=== PATIENT | female | born 1960 | race Caucasian/White ===

== ENCOUNTER 2019-04-07 10:56 | Inpatient (IN) ==
[2019-04-07] MEDS ORDERED: ASPIRIN PO ONE (11:06)
[2019-04-07] MEDS ORDERED: ASPIRIN PR ONE (11:06)
[2019-04-07] MEDS ORDERED: CARDIZEM ONE (11:13)
[2019-04-07] MEDS ORDERED: NS 1,000 ML ONE (11:14)
[2019-04-07] MEDS ORDERED: CARDIZEM IV ONE (11:18)
[2019-04-07] MEDS ORDERED: NS 1,000 ML IV ONE (11:24)
[2019-04-07 11:26] LABS: BASO# 0.04 X1000 (0.0-0.2); BASO% 0.5 % (0.0-0.8); EOS# 0.05 X1000 (0.0-0.7); EOS% 0.6 % (0.0-10.0); HEMATOCRIT 47.6 % (37.0-47.0); HEMOGLOBIN 15.4 g/dL (12.0-16.0); IMM GRAN# 0.06 X1000 (0.0-0.04); IMM GRAN% 0.7 % (0.0-0.5); LYMPH# 2.26 X1000 (1.2-3.4); LYMPH% 27.5 % (20.5-51.1); MCH 30.9 PG (27-31); MCHC 32.4 g/dL (33-37); MCV 95.6 FL (81-99); MONO# 0.68 X1000 (0.11-0.59); MONO% 8.3 % (1.7-9.3); MPV 9.5 FL (7.4-10.4); NEUT# 5.13 X1000 (1.4-6.5); NEUT% 62.4 % (42.2-75.2); PLT 429 X1000 (130-400); RBC 4.98 XMIL (4.2-5.4); RDW 14.5 % (11.5-14.5); WBC 8.22 X1000 (4.8-10.8)
[2019-04-07 11:40] LABS: INR 1.03
[2019-04-07 11:41] LABS: AGAP 16; ALKALINE PHOSPHATASE 118 U/L (32-104); BUN 11 mg/dL (8-22); CHLORIDE 95 mmol/L (98-107); CK PROFILE 54 U/L (24-173); COSMO 269; CREATININE 0.9 mg/dL (0.5-0.9); ESTIMATED GFR > 60; GLUCOSE 115 mg/dL (70-104); GOT 38 U/L (10-30); GPT 12 U/L (10-36); POTASSIUM 4.8 mmol/L (3.5-5.1); PTT 31.6 Seconds (22.3-41.8); SODIUM 134 mmol/L (136-145); TCO2 24 mmol/L (25-35); TOTAL PROTEIN 7.4 g/dL (6.3-8.3)
[2019-04-07] MEDS ORDERED: CARDIZEM 100 MG/NS 100 MG/100 ML IVPB IV SCH (11:45)
[2019-04-07] MEDS: CARDIZEM 125 MG/D5W 125 MG/125 ML IVPB IV SCH ×2 (11:58→18:52)
[2019-04-07 12:16] LABS: URINE SOURCE CLEAN CATCH
[2019-04-07 12:20] LABS: BILIRUBIN URINE NEGATIVE (NEGATIVE); BLOOD URINE NEGATIVE (NEGATIVE); COLOR YELLOW; GLUCOSE URINE NEGATIVE (NEGATIVE); KETONE URINE NEGATIVE (NEGATIVE); LEUKOCYTES URINE NEGATIVE (NEGATIVE); NITRITE URINE NEGATIVE (NEGATIVE); PROTEIN URINE NEGATIVE (NEGATIVE); SP GRAVITY URINE 1.008; TURBIDITY URINE CLEAR (CLEAR); UROBILINOGEN URINE NORMAL (NORMAL)
[2019-04-07 12:23] LABS: UR EPITHELIAL CELLS >10 /HPF (<10); URINE BACTERIA NEGATIVE /HPF; URINE CASTS NONE SEEN; URINE CRYSTALS NONE SEEN; URINE RBC <10 /HPF (<10); URINE SMALL ROUND CELLS NONE SEEN; URINE WBC <10 /HPF (<10); URINE YEAST NONE SEEN
--- NOTE | 2019-04-07 12:42 | Diag Imaging Result Doc PS360 ---
EXAM: CHEST-2 VIEWS HISTORY: WEAKNESS RECENT DX OF PNEUMONIA TECHNIQUE: Two views COMPARISON: 04/04/2019 FINDINGS: There are small pleural effusions, right greater than left. The heart remains mildly enlarged. There is vascular distention. Atelectasis is present in the lower lungs and there may be underlying infiltrates as well. IMPRESSION: Mild interval worsening Electronically signed by Dinh Ardon 04/07/2019 12:40 PM
[2019-04-07] MEDS ORDERED: LANOXIN IV ONE ×2 (12:44→16:01)
--- NOTE | 2019-04-07 13:33 | Diag Imaging Result Doc PS360 ---
EXAM: CT ANGIOGRM PULMONARY ARTERIES HISTORY: sob faint TECHNIQUE: CT chest with intravenous contrast. Pulmonary arterial protocol with MIP images. COMPARISON: 06/06/2012 FINDINGS: Normal opacification of the pulmonary arteries and their major branches. There is a small to moderate-sized right pleural effusion measuring 4.3 cm posteriorly and inferiorly in the midline. Small left pleural effusion. The heart is enlarged. There is a small pericardial effusion measuring 7 mm in diameter. There are calcified mediastinal and hilar lymph nodes and a large calcified granuloma in the right lower lobe. There is vascular distention. Atelectasis is present in the lower lungs. Questionable small underlying infiltrates in the right lower lobe. IMPRESSION: 1.No pulmonary emboli 2.Cardiomegaly with pulmonary edema and pleural effusions as well as a tiny pericardial effusion 3.Basilar atelectasis 4.There is evidence of a prior granulomatous infection This exam was performed using automated exposure control, adjustment of mA or kV according to patient size, and/or use of iterative reconstruction technique. Electronically signed by Dinh Ardon 04/07/2019 1:30 PM
[2019-04-07] MEDS ORDERED: LASIX IV SCH ×2 (17:00→19:29)
--- NOTE | 2019-04-07 17:50 | EKG Report ---
Test Performed on : 04/07/2019 2:24:53 PM Test Reason : bolanos Blood Pressure : / mmHG Vent. Rate : 128 BPM Atrial Rate : 394 BPM P-R Int : 000 ms QRS Dur : 082 ms QT Int : 308 ms P-R-T Axes : 000 009 188 degrees QTc Int : 449 ms Atrial flutter. with variable AV block. Low voltage QRS Cannot rule out Anterior infarct (cited on or before 07-APR-2019) Abnormal ECG When compared with ECG of 07-APR-2019 11:17, (Unconfirmed) Atrial flutter. has replaced Atrial fibrillation. Unconfirmed Result
--- NOTE | 2019-04-07 17:54 | PROVIDER DOCUMENTATION ---
This chart was entered by Salma Albert Scribe, acting as scribe for Oc Jordan MD. HPI-Cardiac General - General Chief Complaint: Weakness Stated Complaint: AFIB-SENT FROM [facility] Time Seen by Provider: 04/07/19 11:20 Source: patient Allergies/Adverse Reactions: Patient Allergies Allergy/AdvReac Type Severity Reaction Status Date / Time codeine AdvReac HIVES Verified 04/07/19 11:34 latex AdvReac HIVES Verified 04/07/19 11:34 metoprolol [From Lopressor] AdvReac DRY COUGH Verified 04/07/19 11:34 Penicillins AdvReac HIVES Verified 04/07/19 11:34 Sulfa (Sulfonamide AdvReac HIVES Verified 04/07/19 11:34 Antibiotics) Home Medications: Home Medication List Medication Instructions Recorded Confirmed Last Taken Type Cholecalciferol (Vit D3) [Vitamin 5,000 unit PO DAILY 10/12/15 04/07/19 10/12/15 08:45 History D3] Doxepin [Sinequan] 10 mg PO QAM 10/12/15 04/07/19 09/15/17 History Omeprazole [Prilosec] 40 mg PO DAILY 10/12/15 04/07/19 09/19/17 History Alendronate [Fosamax] 70 mg PO DIRECTED 04/07/19 04/07/19 Unknown History Gabapentin 300 mg PO TID 04/07/19 04/07/19 Unknown History Loperamide [Imodium] 4 mg PO 04/07/19 Unknown History Multivitamin [Multivitamins] 04/07/19 Unknown History - History of Present Illness-Cardiac Nature of Presenting Problem: Patient is a 58 year old female who presents with palpitations. States she was being seen at [facility] and was informed she was in A fib with RVR. Reports history of SVT. States she was recently diagnosed with pneumonia. Denies chest pain. Reports fatigue and weakness. Location: reports: central Quality of Pain: reports: none Severity in ED: mild Onset/Duration: unsure Timing: still present Context/Activities at Onset: reports: light activity Palpitation Quality: fast/pounding heart beat History of arrythmia: reports: SVT Associated Symptoms: reports: fatigue, weakness Similar Symptoms Previously?: Yes Recently Seen Here or By Another Healthcare Provider: Yes Review of Systems - Adult - REVIEW OF SYSTEMS - ADULT Constitutional: reports: see HPI, fatique. denies: chills, fever Eyes: reports: no symptoms reported Ears, Nose, Mouth & Throat: reports: no symptoms reported Cardiovascular: reports: see HPI, palpitations. denies: chest pain, syncope Respiratory: reports: no symptoms reported Gastrointestinal: reports: no symptoms reported Genitourinary: reports: no symptoms reported Musculoskeletal: reports: see HPI, muscle weakness. denies: back pain, neck pain Integumentary: reports: no symptoms reported Neurological: reports: no symptoms reported Psychiatric: reports: no symptoms reported Endocrine: reports: no symptoms reported Hematologic/Lymphatic: reports: no symptoms reported Allergic/Immunologic: reports: no symptoms reported All Other Systems: Reviewed and Negative Past History - Adult - PAST MEDICAL HISTORY-ADULT Review of Records: reports: Old Records Reviewed, Nursing Assessment Review, Medications Reviewed, Social history reviewed & non-contributory. Major Childhood Illnesses: reports: denies history Cardiovascular: reports: other (SVT, from caffeine) Respiratory: reports: asthma, sleep apnea Gastrointestinal: reports: GERD Obstetrical/Gynecological: reports: denies history Genitourinary: reports: denies history Musculoskeletal: reports: denies history Neurological: reports: denies history Endocrine/Immune: reports: denies history Other Conditions: reports: denies history - PRIOR SURGERIES/PROCEDURES Surgical/Procedure History: reports: reviewed, not pertinent, cholecystectomy, tonsillectomy, gastric bypass - IMMUNIZATION STATUS Childhood Immunizations: See Nurse Assessment Flu Vaccine: See Nurse Assessment - FAMILY HISTORY Family History: reviewed, not pertinent - SOCIAL HISTORY Smoking: cigarettes, greater than 1 pack/day Provider spent 3-5 mins advising pt. on dangers of tobacco.: Discussed manners to quit use, and f/u contacts for add'l counseling. Substance Use: denies Living Situation: family Physical Exam-General - PHYSICAL EXAM-ADULT Initial Vital Signs Reviewed: Yes - CONSTITUTIONAL General Appearance: alert, no apparent distress. negative: lethargic - HEAD, EARS, NOSE, MOUTH & THROAT HENMT: normocephalic/atraumatic, moist mucous membranes. negative: angioedema - RESPIRATORY Respiratory: chest non-tender, lungs clear, normal breath sounds. negative: ral es - CARDIOVASCULAR Cardiovascular: normal peripheral pulses, tachycardia, irregularly irregular. negative: regular rate, rhythm - GASTROINTESTINAL (ABDOMEN) Abdominal Exam: normal bowel sounds, non tender, soft. negative: rigid - MUSCULOSKELETAL Extremity: non-tender, normal inspection. negative: deformity - SKIN Integumentary: normal color, normal turgor, warm/dry. negative: diaphoresis, pallor - NEUROLOGIC Neurologic: grossly normal. negative: aphasia, facial droop - PSYCHIATRIC Psych/Mental Status: normal mood/affect, oriented x 3. negative: anxious Progress - PLAN OF CARE/RESULTS Progress/Plan/Lab Results: 1117 - Patient received 10 mg of Cardizem. Result Diagrams: 04/08/19 05:40 04/08/19 05:40 - EKG 1 Time of EKG reading by physician:: 11:17 EKG Read and Signed by:: Oc Jordan EKG Interpretation (*Must complete 3 of following elements*): Abnormal (rhythm - atrial fibrillation with rapid ventricular response with premature ventricular or aberrantly conducted complexes) Rate: 171 Pettigrew: normal QRS: other (low voltage) Comments: cannot rule out anterior infarct, age undetermined 2 Time of EKG reading by physician:: 14:24 EKG Read and Signed by:: Oc Jordan EKG Interpretation (*Must complete 3 of following elements*): Abnormal Rate: 128 Rhythm: atrial flutter with variable AV block Pettigrew: normal QRS: other (low voltage) Comments: cannout rule out anterior infarct, age undetermined - XRAY 1 XRAY Study: Chest Impression: See EMR Report (EXAM: CHEST-2 VIEWS HISTORY: WEAKNESS RECENT DX OF PNEUMONIA TECHNIQUE: Two views COMPARISON: 04/04/2019 FINDINGS: There are small pleural effusions, right greater than left. The heart remains mildly enlarged. There is vascular distention. Atelectasis is present in the lower lungs and there may be underlying infiltrates as well. IMPRESSION: Mild interval worsening Electronically signed by Dinh Ardon 04/07/2019 12:40 PM 04/07/19 1240 Interpreting Physician: Dinh Ardon MD Dictated Date/Time: 04/07/19 1239 cc: Oc Jordan MD; Jasmin Leonard MD) - CT/MRI 1 CT Study: Angiogram Impression: See EMR Report ( Signed EXAM: CT ANGIOGRM PULMONARY ARTERIES HISTORY: sob faint TECHNIQUE: CT chest with intravenous contrast. Pulmonary arterial protocol with MIP images. COMPARISON: 06/06/2012 FINDINGS: Normal opacification of the pulmonary arteries and their major branches. There is a small to moderate-sized right pleural effusion measuring 4.3 cm posteriorly and inferiorly in the midline. Small left pleural effusion. The heart is enlarged. There is a small pericardial effusion measuring 7 mm in diameter. There are calcified mediastinal and hilar lymph nodes and a large calcified granuloma in the right lower lobe. There is vascular distention. Atelectasis is present in the lower lungs. Questionable small underlying infiltrates in the right lower lobe. IMPRESSION: 1.No pulmonary emboli 2.Cardiomegaly with pulmonary edema and pleural effusions as well as a tiny pericardial effusion 3.Basilar atelectasis 4.There is evidence of a prior granulomatous infection This exam was performed using automated exposure control, adjustment of mA or kV according to patient size, and/or use of iterative reconstruction technique. Electronically signed by Dinh Ardon 04/07/2019 1:30 PM 04/07/19 1330 Interpreting Physician: Dinh Ardon MD Dictated Date/Time: 04/07/19 1327 cc: Oc Jordan MD; Jasmin Leonard MD) - CONSULTS/PCP/HOSPITALIST Notification #1 *Consult/PCP/Hospitalist*: Dr. Calderon Time Discussed: 15:18 Reason/Comments: Dr. Jordan consulted Dr. Calderon about patient Consult Disposition: Admit Departure - Departure Date of Disposition Decision: 04/07/19 Time of Disposition Decision: 15:18 DIAGNOSIS: Atrial fibrillation and flutter CHF (congestive heart failure) Qualifiers: Heart failure type: unspecified Heart failure chronicity: acute Qualified Code(s): I50.9 - Heart failure, unspecified Disposition: ADMITTED INPATIENT 09 Certified Medical Emergency: Emergent Condition: Stable - Critical Care Note This patient required my direct & personal management of CC.: Yes Total Time (mins): 30 Critical Care Statement: This patient required my direct personal management to treat or rule out processes, the absence of which, could potentiallly result in sudden, clinically significant life or limb threatening deterioration. Attestation - Physician/ SNEHAL Attestation The physician spent face to face time with patient:: Yes Advanced Practice Provider documentation review:: Supervising physician onsite and consulted in the evaluation and care of this patient. The physician did have a face to face encounter with the patient. This chart was documented by the indicated scribe, (Salma Albert Scribe) and accurately reflects the services I performed and decisions made by me, Oc Jordan MD, as attested by the provider's signature.
[2019-04-07] MEDS ORDERED: ROCEPHIN 1 GM in NS 50 ML IV ONE (17:59)
[2019-04-07] MEDS ORDERED: NEURONTIN PO SCH (19:29)
[2019-04-07] MEDS ORDERED: LOVENOX 1 MG/KG SUBQ SCH (19:29)
[2019-04-07] MEDS: LOVENOX SUBQ SCH (20:40)
--- NOTE | 2019-04-07 21:52 | HISTORY AND PHYSICAL ---
PRIMARY CARE PHYSICIAN: Dr. Leonard. CHIEF COMPLAINT: Of atrial fibrillation with RVR per [facility] when she went there today to be seen for fatigue and weakness. HISTORY OF PRESENTING ILLNESS: This is a 58-year-old female who presents to [facility] ER after she was seen at [facility] walk-in clinic today for her symptoms of fatigue and weakness. States that she was found to be in atrial fibrillation with RVR which would be a new onset for this patient. She has had a history in the past of SVT. States she also was recently diagnosed with a pneumonia but took all of her antibiotics for that and was feeling better. She denied any palpitations, chest pain, shortness of breath. Her main complaint was fatigue and weakness. When she arrived she was found to be in atrial fibrillation with RVR at 171. She was given a dose of Cardizem 10 mg IV x1, digoxin 250 mcg IV x1, aspirin 325 p.o. x1. Her heart rate did come down to the 130s, upper 120s but she had to be placed on a Cardizem drip so she will be admitted to the PVC unit at the [facility] for further evaluation and treatment. PAST MEDICAL HISTORY: Of SVT, asthma, sleep apnea, GERD. PAST SURGICAL HISTORY: Of a cholecystectomy, tonsillectomy and gastric bypass. FAMILY HISTORY: Reviewed and noncontributory. SOCIAL HISTORY: She currently lives with her . Does smoke a pack of cigarettes a day and has done so for 30+ years. Denies any alcohol or illicit drug use. ALLERGIES: Codeine, latex, metoprolol, penicillins and sulfa drugs. HOME MEDICATIONS: She takes Fosamax 70 mg 1 tablet by mouth weekly, vitamin D3 5000 units p.o. daily, doxepin 10 mg p.o. q.a.m., folic acid 1 mg p.o. daily, gabapentin 300 mg p.o. t.i.d. and omeprazole 40 mg p.o. daily. LABORATORY DATA: Showed a white blood cell count of 8.22, hemoglobin 15.4, hematocrit 47.6, platelets 429,000, PT and INR of 14 and 1.03 with a D-dimer of 4. Sodium of 134, potassium 4.8, chloride 95, CO2 24, BUN of 11, creatinine 0.9, glucose 115. Cardiac enzyme x2 sets have been negative. ProBNP of 3198. Plasma lactate of 2.1. Urinalysis was negative. Chest x-ray showed mild interval worsening of small pleural effusion right greater than left and a pulmonary arteriogram that showed no pulmonary emboli, cardiomegaly with pulmonary edema and pleural effusion as well as a tiny pericardial effusion and basilar atelectasis. REVIEW OF SYSTEMS: She denied any fever, chills, blurred vision, dizziness, chest pain, coughing, shortness of breath. She had fatigue and weakness. Denied any abdominal pain, constipation, diarrhea, nausea, vomiting, burning or hurting with urination. On arrival she had a temperature of 97.5 degrees, a pulse of 172, respirations 22, blood pressure 141/121, saturating 95% on 2 L. Currently heart rate is come down to 129, blood pressure is down to 106/90 and she is still saturating 95% on 2 L.HEENT: Normocephalic, atraumatic. Normal ENT inspection. Oropharynx and nares are clear. Pupils are equal, round, reactive to light, accommodation. Extraocular movements are intact. Neck: Normal inspection, normal range of motion. Lungs: Clear to auscultation bilaterally with equal lung expansion, chest wall movement. Heart: With irregular rate and rhythm but no murmurs, rubs, or gallops. Abdomen: Soft, nontender, nondistended. Bowel sounds are present x4 quadrants. Musculoskeletal: She had 5/5 strength x4 extremities. Neurological: The cranial nerves 2-12 appear grossly intact. ASSESSMENT: 1. New onset atrial fibrillation with rapid ventricular response. 2. Elevated D-dimer ruled out for a pulmonary embolism. 3. Hypertension. 4. Tobacco abuse. PLAN: She will be admitted to the PVC unit at [facility], placed on a Cardizem drip, Lovenox 40 mg subcu q.24, do an echocardiogram, bilateral lower extremity venous Doppler, will consult Cardiology. Continue her home medications as previously identified, going to give her Lasix 40 mg IV q.12, recheck a CBC, BMP in the a.m. and further orders after seen by attending and by industrial methods consultant. Dictated by RAMY Real for Dewayne Calderon MD cc: MD Dewayne Deutsch MD
[2019-04-07] MEDS: LANOXIN IV SCH (22:04)
[2019-04-07] MEDS: SINEQUAN PO SCH (22:59)
--- NOTE | 2019-04-08 02:05 | HISTORY AND PHYSICAL ---
ADDENDUM: Patient came in with shortness of breath. She initially had a gastroenteritis and then she has started having issues with shortness of breath. She was evaluated and treated for pneumonia, but now she has heart failure and atrial fibrillation flutter with rapid. So, we will continue treatment and we will see how she does. We will pursue echo, Cardiology consult. Her effusion is likely reactive, but we will continue to monitor closely. This is a critical care note for atrial fibrillation with RVR requiring multiple IV antiarrhythmics, 35 critical care time, seen with Kate Perla. cc: Dewayne Calderon MD
[2019-04-08] MEDS: CARDIZEM 100 MG/NS 100 MG/100 ML IVPB IV SCH ×3 (03:57→20:24)
[2019-04-08] MEDS: LANOXIN IV SCH (04:03)
[2019-04-08] MEDS: LASIX IV SCH ×2 (05:08→16:52)
[2019-04-08] MEDS: PRILOSEC PO SCH (06:05)
[2019-04-08 06:40] LABS: BASO# 0.04 X1000 (0.0-0.2); BASO% 0.5 % (0.0-0.8); EOS# 0.09 X1000 (0.0-0.7); EOS% 1.1 % (0.0-10.0); HEMATOCRIT 48.6 % (37.0-47.0); HEMOGLOBIN 15.5 g/dL (12.0-16.0); IMM GRAN# 0.05 X1000 (0.0-0.04); IMM GRAN% 0.6 % (0.0-0.5); LYMPH# 1.59 X1000 (1.2-3.4); MCH 30.8 PG (27-31); MCHC 31.9 g/dL (33-37); MCV 96.6 FL (81-99); MONO# 0.62 X1000 (0.11-0.59); MONO% 7.8 % (1.7-9.3); MPV 9.8 FL (7.4-10.4); NEUT# 5.55 X1000 (1.4-6.5); PLT 363 X1000 (130-400); RBC 5.03 XMIL (4.2-5.4); RDW 14.5 % (11.5-14.5); WBC 7.94 X1000 (4.8-10.8)
[2019-04-08 07:07] LABS: AGAP 14; BUN 11 mg/dL (8-22); CALCIUM 9.2 mg/dL (8.8-10.2); CHLORIDE 97 mmol/L (98-107); COSMO 271; CREATININE 0.7 mg/dL (0.5-0.9); ESTIMATED GFR > 60; GLUCOSE 87 mg/dL (70-104); POTASSIUM 4.8 mmol/L (3.5-5.1); SODIUM 136 mmol/L (136-145); TCO2 25 mmol/L (25-35)
--- NOTE | 2019-04-08 07:39 | Diag Imaging Result Doc PS360 ---
EXAM: CHEST-PORTABLE - 04/08/2019 HISTORY: dyspnea TECHNIQUE: Portable chest COMPARISON: 04/07/2019 FINDINGS: There is stable cardiomegaly. There is interstitial marking prominence similar to prior. There is a medium right pleural effusion which appears to have increased mildly. There is a small left pleural effusion. There are no other interval changes identified. IMPRESSION: Interstitial marking prominence similar to prior. Mild increase in right pleural effusion. Electronically signed by Dean Morgan 04/08/2019 7:37 AM
[2019-04-08] MEDS ORDERED: MOBIC PO ONE (08:38)
[2019-04-08] MEDS: NICODERM PATCH TD SCH ×2 (08:43→09:37)
[2019-04-08] MEDS ORDERED: SINEQUAN PO SCH (09:00)
[2019-04-08] MEDS: LOVENOX SUBQ SCH ×2 (09:36→20:27)
[2019-04-08] MEDS: FOLIC ACID PO SCH (09:37)
[2019-04-08] MEDS: NEURONTIN PO PRN ×3 (09:37→22:54)
[2019-04-08] MEDS: VITAMIN D PO SCH (09:37)
--- NOTE | 2019-04-08 09:46 | PROGRESS NOTE ---
DATE: 04/08/2019 SUBJECTIVE: This patient is feeling better. She is sitting on the bed, without any complaints. As per the patient, she does not have palpitations, but she feels fatigued. As per the patient, also she has a history of SVT that resolved by itself. Also she has a history of asthma, sleep apnea, and GERD. OBJECTIVE: Vital Signs: Temperature 97.8 degrees, pulse 113, respiratory rate 19, blood pressure 119/70, oxygen saturation 94% on 2 L of nasal cannula. HEENT: Head normocephalic, no trauma. PERRLA. Neck: Supple. No JVD. No masses. Central trachea. Chest: Clear to auscultation. Decreased breath sounds at the bases with crackles bilaterally, mostly on the right side. Abdomen: Soft, protuberant, nontender, nondistended. Multiple scars. Extremities: No edema, no clubbing, no cyanosis. Neurological: The patient is alert and oriented x3. No focal deficits. Cardiovascular: Irregularly irregular rate and rhythm, tachycardic. LABORATORY: WBC 7.9, hemoglobin 15.5, hematocrit 48.6, platelets 463,000. Sodium 136, potassium 4.8, chloride 97, bicarbonate 25, BUN 11, creatinine 0.7, glucose 87, calcium 9.2, magnesium 2. ASSESSMENT AND PLAN: 1. New-onset atrial fibrillation with RVR, she has been placed on Cardizem drip and anticoagulation. We will continue with same management. Cardiology Department has been consulted. 2. Elevated D-dimer. We had a CT angiogram that did not show any pulmonary embolism, but she does have some pleural effusion and vascular congestion. 3. Hypertension, stable. 4. Tobacco abuse. This patient has been highly advised against tobacco use. I will continue with daily cessation education. 5. Sleep apnea. Continue with her CPAP/BiPAP machine. 6. GERD. Continue with omeprazole. cc: Jose Landon MD
[2019-04-08] MEDS ORDERED: XOPENEX NEB INH PRN (10:40)
[2019-04-08] MEDS ORDERED: ATROVENT NEB INH PRN (10:41)
[2019-04-08] MEDS ORDERED: NS NEB INH SCH (10:45)
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
[2019-04-08] MEDS: SINEQUAN PO SCH (22:54)
[2019-04-09] MEDS ORDERED: CALMOSEPTINE OINTMENT TOP PRN (02:05)
[2019-04-09] MEDS: LASIX IV SCH (05:04)
[2019-04-09] MEDS: CARDIZEM 100 MG/NS 100 MG/100 ML IVPB IV SCH ×3 (05:58→18:50)
[2019-04-09] MEDS: NEURONTIN PO PRN ×3 (06:02→21:26)
[2019-04-09] MEDS: PRILOSEC PO SCH (06:02)
[2019-04-09 06:44] LABS: AGAP 8; BUN 9 mg/dL (8-22); CALCIUM 8.7 mg/dL (8.8-10.2); CHLORIDE 98 mmol/L (98-107); COSMO 272; CREATININE 0.7 mg/dL (0.5-0.9); ESTIMATED GFR > 60; GLUCOSE 82 mg/dL (70-104); SODIUM 137 mmol/L (136-145); TCO2 31 mmol/L (25-35)
--- NOTE | 2019-04-09 08:20 | EKG Report ---
Test Performed on : 04/07/2019 11:17:57 AM Test Reason : SOB Blood Pressure : / mmHG Vent. Rate : 171 BPM Atrial Rate : 104 BPM P-R Int : 000 ms QRS Dur : 078 ms QT Int : 276 ms P-R-T Axes : 000 048 198 degrees QTc Int : 465 ms Atrial fibrillation. with rapid ventricular response. with premature ventricular or aberrantly conduc xi complexes. Low voltage QRS Cannot rule out Anterior infarct , age undetermined Abnormal ECG When compared with ECG of 12-OCT-2015 12:50, Atrial fibrillation. has replaced Sinus rhythm. Vent. rate has increased BY 103 BPM Minimal criteria for Anterior infarct are now present Nonspecific T wave abnormality, worse in Inferior leads Nonspecific T wave abnormality now evident in Lateral leads Unconfirmed Result
[2019-04-09] MEDS ORDERED: LANOXIN IV ONE (08:46)
[2019-04-09] MEDS: LOVENOX SUBQ SCH ×2 (08:58→21:09)
[2019-04-09] MEDS: NICODERM PATCH TD SCH (08:58)
[2019-04-09] MEDS: VITAMIN D PO SCH (08:58)
[2019-04-09] MEDS: BETAPACE PO SCH ×2 (08:58→21:09)
[2019-04-09] MEDS: FOLIC ACID PO SCH (08:58)
--- NOTE | 2019-04-09 09:45 | ECHO REPORT ---
ORDER DATE: 04/07/2019 MEASUREMENTS: Left atrium 4.7, aortic root 2.6. SUMMARY: 1. Very difficult study for interpretation. 2. Mild sclerotic changes of trileaflet aortic valve demonstrated with normal aortic valve opening evident. The peak gradient across the aortic valve is 11 mmHg. Mitral and tricuspid valves are without evidence of structural abnormality, while pulmonic valve is not well demonstrated. There is very mild tricuspid regurgitation. The estimated systolic PA pressure by Doppler is 40 mmHg, suggesting mild pulmonary hypertension. The aortic root is normal in size. 3. Normal left ventricular dimensions suggested on 2-dimensional images. The estimated left ventricular ejection fraction appears to be approximately 55%. No obvious regional wall motion abnormality can be appreciated. The left atrium is moderately enlarged on 2- dimensional images. The right atrium is [id number] enlarged. Right ventricle is grossly normal in size. 4. No pericardial effusion. 5. Appearance of inferior vena cava suggests elevated central venous pressure. cc: MD Kate Rice CRNP
--- NOTE | 2019-04-09 14:53 | PROGRESS NOTE ---
DATE: 04/09/2019 SUBJECTIVE: This morning, Ms. Hooper refers to be doing a whole lot better. No new complaints. She said early on, she felt the heart racing a little faster, and they had to go up on the Cardizem drip. She has been started today on Betapace as well. OBJECTIVE: Vital Signs: Blood pressure is 118/80, pulse of 108, respirations 17, temperature 98.8 degrees. General: Ms. Hooper is a 58-year-old female. She is in bed. No distress. HEENT: Mucosa is pink and moist. Anicteric. Acyanotic. Neck: Supple. Chest: Good air entry bilaterally. No crepitations. No rhonchi. Cardiovascular: Irregularly irregular. Seems to be rate controlled. GI: Abdomen is soft, nontender. Bowel sounds present. Extremities: No pedal edema. PRIMER ASSEMBLER: The patient is awake, alert, and oriented. IMAGING STUDIES: A chest x-ray on admission showed mild interval worsening in terms of pleural effusions. A CTA of the lungs did not show any pulmonary emboli. There was cardiomegaly and pulmonary edema with pleural effusions. Echocardiogram did show an ejection fraction of 55%. Repeat chest x-ray yesterday did show interstitial marking prominence. Mild increase in the right pleural effusion. ASSESSMENT: 1. New onset of atrial fibrillation with rapid ventricular response. The patient continues to be on Cardizem drip. Betapace was started today, and therapeutic Lovenox noted. 2. Hypertension. 3. Tobacco use and abuse. The patient has been counseled. 4. History of sleep apnea. The patient uses a continuous positive airway pressure at night. 5. History of gastroesophageal reflux disease. 6. Status post gastric bypass surgery. 7. Pulmonary edema with pleural effusion on admission secondary to congestive heart failure with preserved ejection fraction as a result of tachyarrhythmia from atrial fibrillation. The patient is on diuretic therapy. cc: Loco Tomas MD
--- NOTE | 2019-04-09 14:54 | PROGRESS NOTE ---
DATE: 04/09/2019 SUBJECTIVE: The patient reports feeling better. She did have some atrial fibrillation with rapid ventricular rate earlier which seems to come under better control with IV Cardizem and IV digoxin. She denies chest discomfort or shortness of breath, and is presently on room air. OBJECTIVE: Vital Signs: Blood pressure 118/80, heart rate 108 with ECG monitor showing atrial fibrillation. Oxygen saturation 96%. Neck: There is no significant jugular venous distention. Chest: Clear to auscultation bilaterally. Cardiac Exam: Reveals an irregular rate and rhythm without appreciable murmur or gallop. Extremities: There is no evidence of peripheral edema. LABORATORY DATA: Includes a TSH 1.72. Sodium 137, potassium 4.0, chloride 98, carbon dioxide 31. BUN 9, creatinine 0.7, glucose 82. IMAGING STUDIES: Echocardiography is technically difficult. Normal left ventricular ejection fraction demonstrated. IMPRESSION: 1. Atrial fibrillation. Probable recent onset. Heart rate coming under better control. 2. Congestive heart failure with preserved left ventricular ejection fraction. Patient improving with diuresis. 3. Obesity. 4. Obstructive sleep apnea. 5. Chronic cigarette use. RECOMMENDATIONS: 1. Add sotalol 80 mg p.o. b.i.d. 2. Continue anticoagulation with Lovenox 1 mg/kg subcutaneously every 12 hours. 3. Decreased Lasix. 4. Ultimately may consider LINCOLN/cardioversion if patient continues in atrial fibrillation. cc: Hakan Alfaro MD
[2019-04-09] MEDS: SINEQUAN PO SCH (21:26)
[2019-04-10] MEDS: CARDIZEM 100 MG/NS 100 MG/100 ML IVPB IV SCH ×4 (02:25→22:09)
[2019-04-10] MEDS: IMODIUM PO PRN ×4 (03:47→23:11)
[2019-04-10] MEDS: PRILOSEC PO SCH (06:22)
[2019-04-10] MEDS: NEURONTIN PO PRN ×3 (06:22→22:00)
[2019-04-10] MEDS: VITAMIN D PO SCH (09:05)
[2019-04-10] MEDS: LASIX IV SCH (09:05)
[2019-04-10] MEDS: NICODERM PATCH TD SCH (09:05)
[2019-04-10] MEDS: BETAPACE PO SCH ×2 (09:05→22:00)
[2019-04-10] MEDS: FOLIC ACID PO SCH (09:05)
[2019-04-10] MEDS: LOVENOX SUBQ SCH ×2 (09:05→22:00)
--- NOTE | 2019-04-10 13:50 | EKG Report ---
Test Performed on : 04/10/2019 12:02:45 PM Test Reason : afib, betapace loading Blood Pressure : / mmHG Vent. Rate : 097 BPM Atrial Rate : 416 BPM P-R Int : 000 ms QRS Dur : 082 ms QT Int : 352 ms P-R-T Axes : 000 -04 220 degrees QTc Int : 447 ms Atrial fibrillation. Nonspecific T wave abnormality Abnormal ECG When compared with ECG of 07-APR-2019 14:24, (Unconfirmed) Atrial fibrillation. has replaced Atrial flutter. Confirmed by Santiago GONZALEZ, Richard ([id number]) on 04/11/2019 8:34:53 AM
--- NOTE | 2019-04-10 19:32 | PROGRESS NOTE ---
DATE: 04/10/2019 SUBJECTIVE: Patient denies shortness of breath or chest discomfort on room air. She continues in atrial fibrillation with mild tachycardia. OBJECTIVE: Vital signs: Blood pressure 118/86, heart rate 91, oxygen saturation 95% on room air. Neck: There is no significant jugular venous distention. Chest: Clear to auscultation. Cardiac: Reveals an irregular rate and rhythm without appreciable murmur or gallop. Extremities: Without edema. ECHOCARDIOGRAPHY: Indicates normal left ventricular systolic function. LABORATORY DATA: Includes a sodium of 137, potassium 4.0, chloride 98, carbon dioxide 31, BUN 9,, creatinine 0.7, glucose 82. IMPRESSION: 1. Atrial fibrillation, probably of recent onset. 2. Congestive heart failure with preserved left ventricular ejection fraction. Patient improved with diuresis. 3. Obesity. 4. Obstructive sleep apnea. 5. Chronic cigarette use. RECOMMENDATIONS: 1. Increase sotalol to 120 mg p.o. b.i.d. 2. Continue anticoagulation with Lovenox. 3. Limit further diuresis. 4. If atrial fibrillation persists, will pursue transesophageal echocardiography/cardioversion tomorrow. This was discussed with the patient and she wished to proceed. cc: Hakan Alfaro MD
--- NOTE | 2019-04-10 20:44 | PROGRESS NOTE ---
DATE: 04/10/2019 SUBJECTIVE: This morning, Ms Hooper refers to be doing well. She continues to be in atrial fibrillation. OBJECTIVE: Vital signs: Blood pressure is 116/89, pulse of 92, respiration is 19, temperature 98.4 degrees. General: Ms. Hooper is a 58-year-old female. She was in bed in no distress. Mucosa is pink and moist. Anicteric. Acyanotic. Neck: Supple. Chest: Good air entry bilateral. I did not hear any crackles or crepitations. Cardiovascular: Irregularly irregular but rate controlled. GI: Abdomen was soft, nontender. Bowel sounds present. Extremities: No pedal edema. Distal pulses present. VICE PRESIDENT NETWORK: Patient was awake, alert, and oriented. There was no focal neurological deficit. INTAKE AND OUTPUT: Urine output was about 5900. She is currently negative balance of over 9000. LABS: No labs were for this morning. The patient continues to be on the Cardizem drip and Betapace has been increased to 120. An EKG this morning continues to show atrial fibrillation, but rate controlled. ASSESSMENT: 1. New onset of atrial fibrillation with rapid ventricular response. The patient continues to be on Cardizem drip and Betapace p.o.. There is there is a plan for a LINCOLN with cardioversion tomorrow morning. 2. Hypertension. Controlled. 3. Tobacco use and abuse. The patient has been counseled. The patient is currently on nicotine patch. I understand you she was found attempting to smoke in the room and vape was also found in her room. House sup has been notified. 4. History of sleep apnea. Patient uses CPAP. 5. Status post gastric bypass surgery noted. 6. Pulmonary edema with pleural effusion on admission secondary to congestive heart failure with preserved ejection fraction. The patient is breathing a lot better. We are going to check on her pro B tomorrow morning. cc: Loco Tomas MD MTDD
[2019-04-10] MEDS: SINEQUAN PO SCH (22:00)
[2019-04-11] MEDS: IMODIUM PO PRN ×3 (04:44→21:59)
[2019-04-11] MEDS: PRILOSEC PO SCH (06:07)
[2019-04-11] MEDS: NEURONTIN PO PRN ×3 (06:08→21:59)
--- NOTE | 2019-04-11 07:01 | Extremity Venous Study ---
PROCEDURE NAME: Venous U/S Bilateral Legs - 04/08/2019 REQUESTING PHYSICIAN: Alfreda. READING PHYSICIAN: Dr. Alexandra. REFINERY OPERATOR POLYMERIZATION PLANT: Fabian. INDICATION: Elevated D-dimer. There is comparison study on 12/17/2015. FINDINGS: The deep and superficial veins of both lower extremities were imaged throughout their course. They are compressible, patent without thrombus. INTERPRETATION: No evidence of DVT or SVT in either lower extremity, which is unchanged from the prior study. cc: MD Kate Jefferson CRNP
[2019-04-11 07:02] LABS: AGAP 11; BUN 13 mg/dL (8-22); CALCIUM 9.2 mg/dL (8.8-10.2); CHLORIDE 98 mmol/L (98-107); COSMO 274; CREATININE 0.6 mg/dL (0.5-0.9); ESTIMATED GFR > 60; GLUCOSE 92 mg/dL (70-104); MAGNESIUM 2.1 mg/dL (1.5-2.7); POTASSIUM 4.5 mmol/L (3.5-5.1); SODIUM 137 mmol/L (136-145); TCO2 28 mmol/L (25-35)
--- NOTE | 2019-04-11 07:28 | Diag Imaging Result Doc PS360 ---
EXAM: CHEST-1 VIEW 04/11/2019 HISTORY: SOB TECHNIQUE: AP portable at 0600 COMMENT: There is ill-defined opacity over the right base and blunting of the right costophrenic angle. This has improved slightly since 04/08/2019. There is also some diminishment in the generalized interstitial opacity. There are platelike opacities in the left base which were not as evident on the previous study however. IMPRESSION: Improved right basilar atelectasis or pneumonia. Improved right pleural effusion. Improved pulmonary edema. Worsened left lower lobe atelectasis. Electronically signed by Iván Shah 04/11/2019 7:25 AM
--- NOTE | 2019-04-11 07:43 | EKG Report ---
Test Performed on : 04/11/2019 06:17:58 AM Test Reason : afib, betapace loading Blood Pressure : / mmHG Vent. Rate : 095 BPM Atrial Rate : 100 BPM P-R Int : 000 ms QRS Dur : 078 ms QT Int : 348 ms P-R-T Axes : 000 008 220 degrees QTc Int : 437 ms Atrial fibrillation. Low voltage QRS Cannot rule out Anterior infarct , age undetermined Abnormal ECG When compared with ECG of 10-APR-2019 12:02, (Unconfirmed) No significant change was found Confirmed by Santiago GONZALEZ, Richard ([id number]) on 04/11/2019 8:40:15 AM
[2019-04-11] MEDS: CARDIZEM 100 MG/NS 100 MG/100 ML IVPB IV SCH (08:19)
[2019-04-11] MEDS: VITAMIN D PO SCH (08:20)
[2019-04-11] MEDS: BETAPACE PO SCH ×2 (08:20→21:59)
[2019-04-11] MEDS: FOLIC ACID PO SCH (08:20)
[2019-04-11] MEDS: LOVENOX SUBQ SCH (08:20)
[2019-04-11] MEDS: NICODERM PATCH TD SCH (08:20)
[2019-04-11] MEDS ORDERED: DIPRIVAN 1% ONE ×2 (10:50→11:42)
[2019-04-11] MEDS ORDERED: XYLOCAINE 2% VISCOUS ONE (11:08)
--- NOTE | 2019-04-11 13:36 | EKG Report ---
Test Performed on : 04/11/2019 1:07:38 PM Test Reason : post cardioversion Blood Pressure : / mmHG Vent. Rate : 059 BPM Atrial Rate : 059 BPM P-R Int : 178 ms QRS Dur : 084 ms QT Int : 448 ms P-R-T Axes : 074 -07 -76 degrees QTc Int : 443 ms Sinus bradycardia. Low voltage QRS Nonspecific T wave abnormality Abnormal ECG When compared with ECG of 11-APR-2019 06:17, Sinus rhythm. has replaced Atrial fibrillation. Vent. rate has decreased BY 36 BPM Confirmed by Santiago GONZALEZ, Richard ([id number]) on 04/11/2019 5:40:48 PM
--- NOTE | 2019-04-11 15:06 | PROGRESS NOTE ---
DATE: 04/11/2019 SUBJECTIVE: The patient had LINCOLN cardioversion today and continues in sinus rhythm. She denies any chest discomfort or shortness of breath on room air. OBJECTIVE: Blood pressure 100/67, heart rate 60 and regular, with ECG monitor showing sinus rhythm, oxygen saturation 92-95% on room air. There is no significant jugular venous distention. Auscultation of the chest reveals a few scant rhonchi but no rales or wheezes. Cardiac examination reveals a regular rate and rhythm without appreciable murmur or gallop. There is no evidence of peripheral edema. Laboratory Data: Includes a sodium of 137, potassium 4.5, chloride 98, carbon dioxide 28, BUN 13, creatinine 0.6, glucose 92. Chest x-ray reports improved right pleural effusion, improved pulmonary edema and left lower lobe atelectasis. IMPRESSION: 1. Atrial fibrillation, persistent. Patient now is status post transesophageal echocardiogram cardioversion and remains in sinus rhythm on sotalol. 2. Probable chronic obstructive pulmonary disease. 3. Obesity. 4. Obstructive sleep apnea. 5. Chronic cigarette use. RECOMMENDATIONS: 1. Continue sotalol 120 mg p.o. b.i.d. 2. Transition from Lovenox to Eliquis. 3. Further diuresis does not appear to be needed. 4. Pulmonary toilet. 5. Smoking cessation strongly advised. 6. If the patient remains clinically stable, she should be able to be discharged tomorrow. I will be glad to see her back in the office in approximately 3 weeks. cc: Hakan Alfaro MD
[2019-04-11] MEDS: LASIX IV SCH (15:22)
--- NOTE | 2019-04-11 16:34 | CARDIAC CATH REPORT ---
PROCEDURE NAME: - INDICATION: Atrial flutter. PROCEDURES PERFORMED: DC cardioversion. PROCEDURE IN DETAIL: Ms Hooper was brought to the catheterization laboratory in a fasting state. Informed consent was obtained. Prepped in usual fashion. She was anesthetized per Anesthesia. After LINCOLN was performed the patient was ensured to be adequately sedated. One shock was delivered in synchronized fashion at 120 joules with conversion to sinus rhythm. No apparent complications. cc: Milan Kolb MD
--- NOTE | 2019-04-11 18:18 | PROGRESS NOTE ---
DATE: 04/11/2019 SUBJECTIVE: Today, Ms. Hooper refers to be doing a whole lot better. She underwent LINCOLN with electrical cardioversion today. She is currently in sinus. She denies any chest pain or shortness of breath. OBJECTIVELY: Current vitals blood pressure is 104/74, pulse of 63, respirations 13, temperature is 98.4 degrees.General: Ms. Hooper is a 58-year-old female. She is in bed no distress. Mucosa is pink and moist. Anicteric. Acyanotic. Neck: Supple. Chest: Good air entry bilateral. There was no crepitations, no rhonchi. Cardiovascular: Regular rate and rhythm. No murmurs, no rubs, no gallops. GI: Abdomen was soft, nontender. Bowel sounds present. Extremities: No pedal edema. BUS ASSISTANT: The patient was awake, alert, and oriented. There is no focal neurological deficit. INTAKE AND OUTPUT: Urine output was about 5200. She is currently about 12,000 negative fluid balance. LABORATORY STUDIES: Chemistry is reviewed. It is completely normal. The patient's pro-B is also reduced to 1734. DIAGNOSTIC STUDIES: A chest x-ray this morning shows improved right basilar atelectasis or pneumonia. There is also improved right pleural effusion, improved pulmonary edema. ASSESSMENT: 1. New onset of atrial fibrillation with rapid ventricular response. The patient is status post LINCOLN with electrical cardioversion. She is currently in sinus and she has been on Betapace. The anticoagulation has also been switched to p.o. Eliquis. 2. Hypertension controlled. 3. Tobacco use and abuse. The patient has been counseled. 4. History of sleep apnea. Patient uses CPAP. 5. Status post gastric bypass surgery. Noted. 6. Congestive heart failure with preserved ejection fraction on admission due to tachyarrhythmia from atrial fibrillation, improved. Recent chest x-ray this morning shows complete improvement of the pulmonary edema and pro-B is also trending down. PLAN: In general, I think Ms. Hooper is doing a lot better. She maintains in sinus after the cardioversion. Cardiology has already evaluated her and the plan is to discharge her if she remains stable for tomorrow. cc: Loco Tomas MD
[2019-04-11] MEDS: SINEQUAN PO SCH (21:59)
[2019-04-11] MEDS: ELIQUIS PO SCH (21:59)
[2019-04-12] MEDS: IMODIUM PO PRN ×2 (03:07→07:18)
[2019-04-12 05:56] LABS: BASO# 0.02 X1000 (0.0-0.2); BASO% 0.4 % (0.0-0.8); EOS# 0.11 X1000 (0.0-0.7); EOS% 2.1 % (0.0-10.0); HEMATOCRIT 40.9 % (37.0-47.0); HEMOGLOBIN 12.6 g/dL (12.0-16.0); LYMPH% 25.1 % (20.5-51.1); MCH 30.1 PG (27-31); MCHC 30.8 g/dL (33-37); MCV 97.8 FL (81-99); MONO# 0.49 X1000 (0.11-0.59); MONO% 9.5 % (1.7-9.3); MPV 9.6 FL (7.4-10.4); NEUT# 3.26 X1000 (1.4-6.5); NEUT% 62.9 % (42.2-75.2); PLT 262 X1000 (130-400); RBC 4.18 XMIL (4.2-5.4); RDW 14.4 % (11.5-14.5); WBC 5.18 X1000 (4.8-10.8)
[2019-04-12] MEDS: NEURONTIN PO PRN (06:05)
[2019-04-12] MEDS: PRILOSEC PO SCH (06:05)
[2019-04-12] MEDS: ELIQUIS PO SCH (08:19)
[2019-04-12] MEDS: FOLIC ACID PO SCH (08:19)
[2019-04-12] MEDS: VITAMIN D PO SCH (08:19)
[2019-04-12] MEDS: BETAPACE PO SCH (08:20)
[2019-04-12] MEDS: NICODERM PATCH TD SCH (08:20)
[2019-04-12] MEDS ORDERED: PNEUMOVAX 23 IM ONE (11:52)
[2019-04-12 12:02] VITALS: BP 112/80
--- NOTE | 2019-04-13 14:16 | Transesophageal Echocardiogram ---
DATE: 04/11/2019 INDICATION: Atrial fibrillation. Evaluate prior to cardioversion. FINDINGS: 1. The right atrium appears mildly enlarged. There was no evidence of [id number] shunting across the interatrial septum with evaluation via color Doppler as well as agitated saline contrast. 2. Mild tricuspid regurgitation. 3. Normal RV size and systolic function. 4. Trace pulmonic insufficiency. 5. The left atrium was severely enlarged with a dimension of 6 cm. There is no evidence of clot visualized in the left atrium or the left atrial appendage via evaluation with color Doppler as well as pulse wave Doppler. There was evidence of a low-flow state as seen by pulse wave Doppler velocity less than 40 cm/sec. In addition, there was some evidence of smoke in the left atrium. 6. No mitral valve prolapse. Trace mitral regurgitation. 7. Normal LV systolic function. The estimated EF is 55%. The left ventricular size appears normal. 8. Aortic valve opens well. It is trileaflet. No evidence of stenosis or insufficiency. 9. There is minimal atherosclerosis in the descending thoracic aorta. 10. No pericardial effusion was identified. cc: MD Emmanuelle Campbell PA
--- NOTE | 2019-04-13 18:15 | DISCHARGE SUMMARY ---
ADMISSION DATE: 04/07/2019 DISCHARGE DATE: 04/12/2019 DISPOSITION: Home. FOLLOWUP: 1. Dr. Jasmin Leonard. 2. Dr. Hakan Alfaro. ADMISSION DIAGNOSES: 1. New-onset atrial fibrillation with rapid ventricular response. 2. Elevated D-dimer, rule out pulmonary embolism. 3. Hypertension. 4. Tobacco use. DIAGNOSES AT THE TIME OF DISCHARGE: 1. New-onset atrial fibrillation with rapid ventricular response. Patient is status post transesophageal echocardiogram with electrical cardioversion. She is currently is in sinus rhythm over 24 hours. She is on Betapace and Eliquis for stroke prophylaxis. 2. Hypertension, controlled. 3. Tobacco use and abuse. Patient has been counseled. 4. Sleep apnea. The patient uses CPAP. 5. Congestive heart failure with preserved ejection fraction on admission, due to tachyarrhythmias from atrial fibrillation. 6. History of gastric bypass surgery noted. DISCHARGE MEDICATIONS: 1. Cholecalciferol 5000 units p.o. daily. 2. Omeprazole 40 mg p.o. daily. 3. Sinequan 10 mg p.o. q.a.m. 4. Alendronate 70 mg p.o. as directed. 5. Vitamins 1 tab daily. 6. Gabapentin 300 mg 3 times per day. 7. Loperamide 4 mg p.o. daily. 8. Folic acid 1 mg p.o. daily. 9. Sotalol 125 p.o. b.i.d. 10. Eliquis 5 mg b.i.d. PRESENTING COMPLAINT: Atrial fibrillation with rapid ventricular response, per the [facility]. HISTORY OF PRESENTING COMPLAINT: Ms. Hooper is a 58-year-old female who is known to have asthma, sleep apnea, GERD, and SVT. She came to the emergency department from [facility], where she was found to have atrial fibrillation. Upon presenting to the emergency department, she was found to be in atrial fibrillation/RVR with a rate of 171. She was given a 1- time dose of IV Cardizem and was started on a drip and admitted. Ms. Hooper initially presented to [facility], and she was transferred over to the [facility] for higher level of care. HOSPITAL COURSE: Ms. Hooper was admitted to the [facility]. She was started on a Cardizem drip and Lovenox therapeutic dose. She was also found to be in congestive heart failure, so she was given a couple doses of Lasix. During the hospital course, her heart rate continued to be in atrial fibrillation, so she was started on Betapace, and a decision was made to cardiovert her. She underwent LINCOLN with cardioversion, which was successful. She remained in sinus rhythm for more than 24 hours. Cardiology evaluated her and thought that she can be discharged. Ms. Hooper is therefore being discharged today in stable condition. At the time of the discharge, her blood pressure is 112/80. Pulse is 54 and is regular. Respiratory rate is 16. Temperature is 97.6. The patient is saturating 95% on room air. Her proBNP has also come down to 1734 from 3198. DISCHARGE INSTRUCTIONS: All the discharge instructions have been discussed with Ms. Hooper. Specifically, we stressed the need for tobacco cessation. She voiced understanding. TIME SPENT FOR DISCHARGE: Thirty-five minutes. cc: MD Jasmin Anguiano MD William D. Denney, MD
== END 2019-04-12 12:56 | disposition home or self-care (01) | DRG 308 ==
LOC: P.ED 10:56 → OBSVTOIN 10:57 → INTOOBSV 10:57 → SUATTDRO 10:57 → P.EDIPHOLD 15:57 → 2N 18:57
PROVIDERS: ATTEND Internal Medicine

== ENCOUNTER 2019-05-06 10:26 | Inpatient (IN) ==
[2019-05-06] MEDS ORDERED: ASPIRIN PO ONE (10:41)
[2019-05-06] MEDS ORDERED: CARDIZEM IV ONE (10:52)
[2019-05-06] MEDS ORDERED: NS 1,000 ML ONE (10:56)
[2019-05-06] MEDS ORDERED: NS 1,000 ML IV ONE ×2 (10:58→13:10)
[2019-05-06 11:13] LABS: BASO# 0.01 X1000 (0.0-0.2); BASO% 0.1 % (0.0-0.8); EOS# 0.01 X1000 (0.0-0.7); EOS% 0.1 % (0.0-10.0); HEMATOCRIT 47.6 % (37.0-47.0); HEMOGLOBIN 16.4 g/dL (12.0-16.0); IMM GRAN# 0.04 X1000 (0.0-0.04); IMM GRAN% 0.4 % (0.0-0.5); LYMPH# 2.05 X1000 (1.2-3.4); LYMPH% 22.9 % (20.5-51.1); MCH 30.1 PG (27-31); MCHC 34.5 g/dL (33-37); MCV 87.3 FL (81-99); MONO# 0.76 X1000 (0.11-0.59); MONO% 8.5 % (1.7-9.3); MPV 10.3 FL (7.4-10.4); NEUT# 6.08 X1000 (1.4-6.5); PLT 151 X1000 (130-400); RBC 5.45 XMIL (4.2-5.4); RDW 14.8 % (11.5-14.5); WBC 8.95 X1000 (4.8-10.8)
--- NOTE | 2019-05-06 11:32 | Diag Imaging Result Doc PS360 ---
EXAM: CHEST-2 VIEWS 05/06/2019 HISTORY: cp TECHNIQUE: PA and lateral chest COMMENT: Compared to 04/11/2019 the pleural effusion which was previously present on the right has apparently resolved. The atelectasis present in both lung bases has also resolved. There continues to be some cardiomegaly. IMPRESSION: Improved pleural effusion on the right and bibasilar atelectasis. Electronically signed by Iván Shah 05/06/2019 11:29 AM
[2019-05-06 11:34] LABS: INR 1.24; PROTIME 16.3 Seconds (11.0-16.0)
[2019-05-06 11:35] LABS: ALBUMIN 4.5 g/dL (3.5-5.0); CALCIUM 8.7 mg/dL (8.8-10.2); POTASSIUM 5.8 mmol/L (3.5-5.1); PTT 39.3 Seconds (22.3-41.8); TOTAL BILIRUBIN 1.4 mg/dL (0.20-1.00); TOTAL PROTEIN 7.7 g/dL (6.3-8.3)
--- NOTE | 2019-05-06 11:40 | EKG Report ---
Test Performed on : 05/06/2019 10:49:25 AM Test Reason : afib Blood Pressure : / mmHG Vent. Rate : 160 BPM Atrial Rate : 166 BPM P-R Int : 144 ms QRS Dur : 094 ms QT Int : 314 ms P-R-T Axes : 000 021 030 degrees QTc Int : 512 ms Sinus tachycardia. with premature supraventricular complexes. and fusion complexes Low voltage QRS Nonspecific ST and T wave abnormality Abnormal ECG When compared with ECG of 11-APR-2019 13:07, Significant changes have occurred Unconfirmed Result
--- NOTE | 2019-05-06 11:42 | PROVIDER DOCUMENTATION ---
This chart was entered by Ayo Moreno Scribe, acting as scribe for Oc Jordan MD. HPI-Cardiac General - General Chief Complaint: Weakness Stated Complaint: SOB, CP Time Seen by Provider: 05/06/19 10:40 Source: patient Allergies/Adverse Reactions: Patient Allergies Allergy/AdvReac Type Severity Reaction Status Date / Time codeine AdvReac HIVES Verified 04/07/19 11:34 latex AdvReac HIVES Verified 04/07/19 11:34 metoprolol [From Lopressor] AdvReac DRY COUGH Verified 04/07/19 11:34 Penicillins AdvReac HIVES Verified 04/07/19 11:34 Sulfa (Sulfonamide AdvReac HIVES Verified 04/07/19 11:34 Antibiotics) Home Medications: Home Medication List Medication Instructions Recorded Confirmed Last Taken Type Cholecalciferol (Vit D3) [Vitamin 5,000 unit PO DAILY 10/12/15 04/07/19 10/12/15 08:45 History D] Doxepin [Sinequan] 10 mg PO QAM 10/12/15 04/07/19 09/15/17 History Omeprazole [Prilosec] 40 mg PO DAILY 10/12/15 04/07/19 09/19/17 History Alendronate [Fosamax] 70 mg PO DIRECTED 04/07/19 04/07/19 Unknown History Gabapentin 300 mg PO TID 04/07/19 04/07/19 Unknown History Loperamide [Imodium] 4 mg PO DAILY 04/07/19 04/10/19 Unknown History Multivitamin [Multivitamins] 1 tab PO DAILY 04/07/19 04/10/19 Unknown History Apixaban [Eliquis] 5 mg PO BID tab 04/12/19 Unknown Rx Folic Acid 1 mg PO DAILY tab 04/12/19 Unknown Rx Sotalol HCl [Sotalol] 120 mg PO BID #120 tab 04/12/19 Unknown Rx - History of Present Illness-Cardiac Nature of Presenting Problem: 58 yof presents to the ed w/ c/o A-FIb again". pt states severe dry heaving (for 30 mins to hr) yesterday perfuse sweating w/ SOB and fatigued/weak. pt reports loss of appetite ," didnt eat yesterday till 3pm had half of my soup w/ diet MNT and water. pt reports taken all meds this AM. pt states "last night 9pm heart beating fast." pt states in hospital for 6 days similar sx. Quality of Pain: reports: none Severity in ED: mild Onset/Duration: 24 hours ago Timing: still present Context/Activities at Onset: reports: none Modifying Factors: improves with: nothing Palpitation Quality: irregular (pt reports) History of arrythmia: reports: A-Fib (new onset apr 2019) Recent use of:: reports: no stimulants Nitro Today/Relief: reports: no nitro taken today Aspirin Treatment Today: reports: provided by ED Prior Chest Pain/Cardiac Workup: reports: other (admitted similar sx) Associated Symptoms: reports: diaphoresis, nausea, shortness of breath, weakness . denies: abdominal pain, fever/chills Similar Symptoms Previously?: Yes (hx similar sx) Recently Seen Here or By Another Healthcare Provider: No Review of Systems - Adult - REVIEW OF SYSTEMS - ADULT Constitutional: reports: see HPI, fatique. denies: chills, fever Eyes: reports: no symptoms reported Ears, Nose, Mouth & Throat: reports: no symptoms reported Cardiovascular: reports: see HPI, chest pain. denies: edema, syncope Respiratory: reports: see HPI, shortness of breath. denies: cough, wheezing Gastrointestinal: reports: see HPI, nausea, poor appetite. denies: abdominal pain, constipation, diarrhea, vomiting Genitourinary: reports: no symptoms reported Musculoskeletal: reports: no symptoms reported Integumentary: reports: no symptoms reported Neurological: reports: no symptoms reported Psychiatric: reports: no symptoms reported Endocrine: reports: no symptoms reported Hematologic/Lymphatic: reports: no symptoms reported Allergic/Immunologic: reports: no symptoms reported All Other Systems: Reviewed and Negative Past History - Adult - PAST MEDICAL HISTORY-ADULT Review of Records: reports: Old Records Reviewed, Nursing Assessment Review, Medications Reviewed, Social history reviewed & non-contributory. Major Childhood Illnesses: reports: denies history Cardiovascular: reports: other (SVT, from caffeine) Respiratory: reports: asthma (child), sleep apnea Gastrointestinal: reports: GERD Obstetrical/Gynecological: reports: denies history Genitourinary: reports: denies history Musculoskeletal: reports: denies history Neurological: reports: denies history Psychiatric: reports: denies history Endocrine/Immune: reports: denies history Other Conditions: reports: denies history - PRIOR SURGERIES/PROCEDURES Surgical/Procedure History: reports: cholecystectomy, tonsillectomy, gastric bypass - IMMUNIZATION STATUS Childhood Immunizations: See Nurse Assessment Flu Vaccine: See Nurse Assessment - FAMILY HISTORY Family History: reviewed, not pertinent - SOCIAL HISTORY Smoking: cigarettes, less than 1 pack/day Provider spent 3-5 mins advising pt. on dangers of tobacco.: Discussed manners to quit use, and f/u contacts for add'l counseling. Substance Use: alcohol Alcohol Use Frequency: occasionally Physical Exam-General - PHYSICAL EXAM-ADULT Initial Vital Signs Reviewed: Yes - CONSTITUTIONAL General Appearance: appears well, alert, mild distress - RESPIRATORY Respiratory: chest non-tender, lungs clear, normal breath sounds - CARDIOVASCULAR Cardiovascular: tachycardia (115). negative: normal peripheral pulses (stronger beats and weaker beats on exam) - CHEST (BREASTS) Chest/Breast: deferred - GASTROINTESTINAL (ABDOMEN) Abdominal Exam: normal bowel sounds, non tender, soft - GENITOURINARY Female Genitalia/Pelvic Exam: deferred Rectal Exam: deferred Hemoccult Exam: deferred - MUSCULOSKELETAL Extremity: normal range of motion, non-tender - SKIN Integumentary: normal color, warm/dry - NEUROLOGIC Neurologic: grossly normal - PSYCHIATRIC Psych/Mental Status: normal mood/affect, normal thought content, normal thought process, oriented x 3 - HEART Score HEART Score: Age: 45-65 Years Progress - PLAN OF CARE/RESULTS Progress/Plan/Lab Results: Vital Signs - 8 hr 05/06/19 10:33 05/06/19 11:01 05/06/19 11:11 Temperature 97.9 F Pulse Rate 115 H 156 H 157 H Respiratory Rate 18 28 H 22 Blood Pressure 94/40 114/76 131/91 O2 Sat by Pulse Oximetry 94 L 96 97 Laboratory Results - last 24 hr 05/06/19 05/06/19 05/06/19 11:02 11:02 11:02 WBC 8.95 RBC 5.45 H Hgb 16.4 H Hct 47.6 H MCV 87.3 MCH 30.1 MCHC 34.5 RDW Std Deviation 14.8 H Plt Count 151 MPV 10.3 Immature Gran % (Auto) 0.4 Neut % (Auto) 68.0 Lymph % (Auto) 22.9 Snyder % (Auto) 8.5 Eos % (Auto) 0.1 Baso % (Auto) 0.1 Immature Gran # (Auto) 0.04 Neut # (Auto) 6.08 Lymph # (Auto) 2.05 Snyder # (Auto) 0.76 H Eos # (Auto) 0.01 Baso # (Auto) 0.01 PT 16.3 H INR 1.24 PTT (Actin FS) 39.3 Sodium 118 L* Potassium 5.8 H Chloride 82 L Carbon Dioxide 20 L Anion Gap 17 BUN 18 Creatinine 1.0 H Estimated GFR/1.73 m2 57 BUN/Creatinine Ratio 18 Glucose 113 H Calculated Osmolality 241 Calcium 8.7 L Total Bilirubin 1.40 H AST 26 ALT 12 Alkaline Phosphatase 138 H Creatine Kinase 89 Troponin T Total Protein 7.7 Albumin 4.5 Globulin 3.0 Albumin/Globulin Ratio 1.0 05/06/19 11:02 WBC RBC Hgb Hct MCV MCH MCHC RDW Std Deviation Plt Count MPV Immature Gran % (Auto) Neut % (Auto) Lymph % (Auto) Snyder % (Auto) Eos % (Auto) Baso % (Auto) Immature Gran # (Auto) Neut # (Auto) Lymph # (Auto) Snyder # (Auto) Eos # (Auto) Baso # (Auto) PT INR PTT (Actin FS) Sodium Potassium Chloride Carbon Dioxide Anion Gap BUN Creatinine Estimated GFR/1.73 m2 BUN/Creatinine Ratio Glucose Calculated Osmolality Calcium Total Bilirubin AST ALT Alkaline Phosphatase Creatine Kinase Troponin T < 0.010 Total Protein Albumin Globulin Albumin/Globulin Ratio Orders Category Date Time Status Cardiac Monitoring DIRECTED Care 05/06/19 10:41 Active Oxygen Therapy- ED Nursing DIRECTED Care 05/06/19 10:41 Active Saline Loc NOW Care 05/06/19 10:41 Active CHEST-2 VIEWS [RAD] Stat Exams 05/06/19 10:41 Completed CBC WITH ELECTRONIC DIFF [HEME] Stat Lab 05/06/19 11:02 Completed CK PROFILE [SP CHEM] Stat Lab 05/06/19 11:02 Completed COMPREHENSIVE METABOLIC PANEL [CHEM] Stat Lab 05/06/19 11:02 Completed PRO B-NATRIURETIC PEPTIDE Stat Lab 05/06/19 11:02 Received PROTIME WITH INR [COAG] Stat Lab 05/06/19 11:02 Completed PTT [COAG] Stat Lab 05/06/19 11:02 Completed TROPONIN T Stat Lab 05/06/19 11:02 Completed 0.9% Sodium Chloride Inj [Ns] 1,000 ml Med 05/06/19 10:56 Discontinued .ROUTE As directed 0.9% Sodium Chloride Inj [Ns] 1,000 ml Med 05/06/19 10:58 Active IV 100 mls/hr Aspirin Med 05/06/19 10:41 Discontinued 325 mg PO NOW ONE Diltiazem [Cardizem] Med 05/06/19 10:52 Discontinued 10 mg IV NOW ONE CP/SOB/Palp >45 yrs of Age Stat Oth 05/06/19 10:41 Ordered EKG [EKG] Stat Ther 05/06/19 10:41 Ordered Result Diagrams: 05/06/19 11:02 05/06/19 11:02 - EKG 1 Time of EKG reading by physician:: 10:49 EKG Read and Signed by:: Oc Jordan (A-FIB RVR noted by ) EKG Interpretation (*Must complete 3 of following elements*): Abnormal Rate: 160 Rhythm: sinus tachycardia w/ premature supraventricular complexes& fusion complexes Crescent: normal QRS: other (low voltage QRS) AL Interval: normal ST Wave: normal Comments: nonspecific ST and T wave abnormality - XRAY 1 XRAY Study: Chest Impression: See EMR Report ( Signed EXAM: CHEST-2 VIEWS 05/06/2019 HISTORY: cp TECHNIQUE: PA and lateral chest COMMENT: Compared to 04/11/2019 the pleural effusion which was previously present on the right has apparently resolved. The atelectasis present in both lung bases has also resolved. There continues to be some cardiomegaly. IMPRESSION: Improved pleural effusion on the right and bibasilar atelectasis. Electronically signed by Iván Shah 05/06/2019 11:29 AM 05/06/19 1129 Interpreting Physician: Iván Shah MD Dictated Date/Time: 05/06/19 1129 cc: Oc Jordan MD; Jasmin Leonard MD) - CONSULTS/PCP/HOSPITALIST Notification #1 *Consult/PCP/Hospitalist*: consult w/ hospilatists Time Discussed: 11:32 (consult to admit) Departure - Departure Date of Disposition Decision: 05/06/19 Time of Disposition Decision: 11:41 DIAGNOSIS: A-fib, Tobacco use, Hyponatremia Disposition: ADMITTED INPATIENT 09 Certified Medical Emergency: Emergent Condition: Stable Referrals and Follow-Ups: Jasmin Leonard MD [Primary Care Provider] - - Critical Care Note This patient required my direct & personal management of CC.: No Attestation - Physician/ SNEHAL Attestation Patient care was provided by Advanced Practice Provider:: No The physician spent face to face time with patient:: Yes Advanced Practice Provider documentation review:: Supervising physician onsite and consulted in the evaluation and care of this patient. The physician did have a face to face encounter with the patient. This chart was documented by the indicated scribe, (Ayo Moreno, Kurt) and accurately reflects the services I performed and decisions made by me, Oc Jordan MD, as attested by the provider's signature.
[2019-05-06] MEDS ORDERED: KAYEXALATE PO ONE (11:48)
[2019-05-06] MEDS ORDERED: LANOXIN IV ONE (11:50)
[2019-05-06] MEDS: CARDIZEM 100 MG/NS 100 MG/100 ML IVPB IV SCH ×3 (12:29→17:38)
--- NOTE | 2019-05-06 13:33 | HISTORY AND PHYSICAL ---
SUBJECTIVE: The patient came in feeling ill for the last couple of days, nausea, vomiting. She was recently diagnosed with atrial fibrillation. She was cardioverted and placed on Betapace. She came in with palpitations. She was found to be in atrial fibrillation with RVR, heart rate in the 120s to 150s. She looks pretty well. Does not have evidence of volume overload. No lower extremity edema. Her legs are okay. She is also fairly hyponatremic and hyperkalemic. PROBLEM LIST: 1. Atrial fibrillation with rapid ventricular response. She is going to be on Cardizem. Will continue that. 2. Hyponatremia. It is unclear what the mechanism of that is. She is not on any diuretics. I do not know if it is just total salt loss. We will initiate some normal saline because she is not in failure, and will follow her basics very closely. Check urine electrolytes. This will need to be monitored closely. Continue to monitor very closely. cc: Dewayne Calderon MD
[2019-05-06] MEDS ORDERED: TYLENOL PO PRN ×2 (13:35→20:26)
[2019-05-06] MEDS ORDERED: ZOFRAN IV PRN ×2 (13:35→20:28)
[2019-05-06 15:20] LABS: ESTIMATED GFR > 60
[2019-05-06 15:22] LABS: AGAP 14; BUN 17 mg/dL (8-22); CALCIUM 8.3 mg/dL (8.8-10.2); CHLORIDE 86 mmol/L (98-107); CK PROFILE 76 U/L (24-173); COSMO 245; CREATININE 0.8 mg/dL (0.5-0.9); GLUCOSE 156 mg/dL (70-104); TCO2 19 mmol/L (25-35)
--- NOTE | 2019-05-06 15:45 | HISTORY AND PHYSICAL ---
PRIMARY CARE PHYSICIAN: Dr. Leonard. CHIEF COMPLAINT: Was having some severe dry heaving yesterday and became short of breath, having fatigue and weakness and began having palpitations this morning, was recently in the hospital on discharged on 04/12/2019 with a new onset atrial fibrillation with rapid ventricular response. HISTORY OF PRESENTING ILLNESS: This is a 58-year-old female who presents to [facility] ER with complaints that she was having some severe dry heaving yesterday, decreased appetite, shortness of breath, fatigue and weakness. She was discharged from the hospital at [facility] on 04/12/2019 with a atrial fibrillation with RVR, status post cardioversion back into normal sinus rhythm, was discharged home in stable condition. States she has been feeling well since that time but yesterday began feeling ill, today has felt palpitations and her heart racing, so she came back to the emergency room. Her workup showed an EKG with atrial fibrillation with rapid ventricular response in the 160s. She was also noted on her laboratory data to have a sodium of 118, a potassium of 5.8. Her proBNP was 4699, which is an increase from 04/11/2019 where it was 1734. In the emergency room she was given Kayexalate 15 g p.o. x1 Cardizem 10 mg IV x1 and digoxin 250 mcg IV x1, given a L bolus of normal saline and will be admitted to the PVC unit at [facility] for further evaluation and treatment. PAST MEDICAL HISTORY: She had a new onset atrial fibrillation with RVR on 04/11/2019, converted to normal sinus rhythm by cardioversion. Hypertension, CHF, SVT, asthma and sleep apnea. PAST SURGICAL HISTORY: Gastric bypass, cholecystectomy and tonsillectomy. FAMILY HISTORY: Reviewed and noncontributory. SOCIAL HISTORY: She currently lives with her . Smokes a pack of cigarettes a day and has done so for 30+ years. Denies any alcohol or illicit drug use. ALLERGIES: Codeine, latex, metoprolol, penicillin and sulfa. HOME MEDICATIONS: Will need to be confirmed, reconciled, reviewed and restarted as appropriate. We will place an order for nursing to update and confirm home medications. LABORATORY DATA: Showed a white blood cell count of 8.95, hemoglobin 16.4, hematocrit 47.6, platelets 151,000. PT and INR of 16.3 and 1.24. Sodium 118, potassium 5.8, chloride 82, CO2 20, BUN of 18, creatinine 1, glucose 113. Total bilirubin of 1.40. Cardiac enzyme was negative proBNP of 4699. Chest x-ray showed improved pleural effusion on the right and bibasilar atelectasis. EKG showed sinus tachycardia with premature supraventricular complexes at 160. REVIEW OF SYSTEMS: She denied any fever, chills, blurred vision, dizziness. She had fatigue, generalized weakness, shortness of breath, palpitations. Denied any abdominal pain, but had some severe dry heaving yesterday. No constipation, diarrhea, burning or hurting with urination. PHYSICAL EXAMINATION: On arrival she had a temperature of 97.9 degrees, pulse was 115, respirations 18, blood pressure 94/40, saturating 94% on room air. Pulse did go up within about 30 minutes up to the 160s currently at 130. GENERAL: This is a 58-year-old female who is lying in the bed and answers questions appropriately. HEENT: Normocephalic, atraumatic. Normal ENT inspection. Oropharynx and nares are clear. EYES: Pupils are equal, round, and reactive to light. Extraocular movements are intact. NECK: Normal inspection. Normal range of motion. LUNGS: Clear to auscultation bilaterally with equal lung expansion and chest wall movement. HEART: With irregular rate and rhythm. No murmurs, rubs, or gallops noted. ABDOMEN: Soft, nontender, nondistended. Bowel sounds are present x4 quadrants. MUSCULOSKELETAL: She had 5/5 strength x4 extremities. NEUROLOGICAL: The cranial nerves 2-12 appear grossly intact. ASSESSMENT: 1. Atrial fibrillation with rapid ventricular response. 2. Hyponatremia. 3. Hyperkalemia. 4. Tobacco abuse. PLAN: She will be admitted to the PVC unit at [facility], placed on telemetry. O2 per protocol, healthy heart diet. We will consult Cardiology. We will check a urine sodium and osmolality and do BMPs q.6 hours x4, troponin q.4 hours x2. Continue home medications after they are identified. We will continue her Eliquis [address].d., place her on a Cardizem drip, normal saline at 100 mL an hour. We gave her cosyntropin 0.25 mg IV x1. Further orders after seen by attending. Dictated by RAMY Real for Dewayne Calderon MD cc: RAMY Real MD Kathy J. Sparacino, MD
[2019-05-06 18:35] LABS: SODIUM 119 mmol/L (136-145)
[2019-05-06] MEDS ORDERED: CORTROSYN IV ONE (20:30)
[2019-05-06] MEDS ORDERED: ELIQUIS PO SCH (21:00)
[2019-05-06] MEDS: ELIQUIS PO SCH (21:00)
[2019-05-06 21:27] LABS: AGAP 18; BUN 15 mg/dL (8-22); CALCIUM 8.3 mg/dL (8.8-10.2); CHLORIDE 83 mmol/L (98-107); COSMO 250; CREATININE 0.9 mg/dL (0.5-0.9); ESTIMATED GFR > 60; GLUCOSE 95 mg/dL (70-104); POTASSIUM 3.9 mmol/L (3.5-5.1); SODIUM 124 mmol/L (136-145); TCO2 23 mmol/L (25-35)
[2019-05-06] MEDS ORDERED: BLISTEX MEDICATED BERRY LIP BALM TOP PRN (23:58)
[2019-05-07] MEDS: CARDIZEM 100 MG/NS 100 MG/100 ML IVPB IV SCH ×2 (01:35→11:48)
[2019-05-07 02:28] LABS: AGAP 16; BUN 14 mg/dL (8-22); CALCIUM 8.1 mg/dL (8.8-10.2); CHLORIDE 90 mmol/L (98-107); COSMO 261; CREATININE 0.8 mg/dL (0.5-0.9); ESTIMATED GFR > 60; GLUCOSE 88 mg/dL (70-104); POTASSIUM 3.8 mmol/L (3.5-5.1); SODIUM 130 mmol/L (136-145); TCO2 24 mmol/L (25-35)
[2019-05-07] MEDS ORDERED: CORTROSYN IV ONE ×2 (06:00)
[2019-05-07 06:43] LABS: BASO# 0.02 X1000 (0.0-0.2); BASO% 0.3 % (0.0-0.8); EOS# 0.03 X1000 (0.0-0.7); EOS% 0.4 % (0.0-10.0); HEMATOCRIT 44.5 % (37.0-47.0); HEMOGLOBIN 15.3 g/dL (12.0-16.0); IMM GRAN# 0.03 X1000 (0.0-0.04); IMM GRAN% 0.4 % (0.0-0.5); LYMPH% 20.5 % (20.5-51.1); MCH 30.6 PG (27-31); MCHC 34.4 g/dL (33-37); MONO# 0.43 X1000 (0.11-0.59); MONO% 6.3 % (1.7-9.3); MPV 10.5 FL (7.4-10.4); NEUT# 4.93 X1000 (1.4-6.5); NEUT% 72.1 % (42.2-75.2); PLT 117 X1000 (130-400); RDW 14.7 % (11.5-14.5); WBC 6.84 X1000 (4.8-10.8)
[2019-05-07 07:19] LABS: AGAP 13; BUN 11 mg/dL (8-22); CALCIUM 7.9 mg/dL (8.8-10.2); CHLORIDE 94 mmol/L (98-107); COSMO 266; CREATININE 0.7 mg/dL (0.5-0.9); ESTIMATED GFR > 60; GLUCOSE 143 mg/dL (70-104); POTASSIUM 3.8 mmol/L (3.5-5.1); SODIUM 132 mmol/L (136-145); TCO2 25 mmol/L (25-35)
[2019-05-07] MEDS: ELIQUIS PO SCH ×2 (08:30→21:10)
[2019-05-07] MEDS ORDERED: ELIQUIS PO SCH (12:15)
[2019-05-07] MEDS ORDERED: IMODIUM PO PRN (12:15)
--- NOTE | 2019-05-07 12:32 | EKG Report ---
Test Performed on : 05/07/2019 11:57:22 AM Test Reason : afib Blood Pressure : / mmHG Vent. Rate : 089 BPM Atrial Rate : 357 BPM P-R Int : 000 ms QRS Dur : 084 ms QT Int : 334 ms P-R-T Axes : 000 027 230 degrees QTc Int : 406 ms Atrial flutter. with variable AV block. Low voltage QRS ST & T wave abnormality, consider inferior ischemia ST & T wave abnormality, consider anterolateral ischemia Abnormal ECG When compared with ECG of 06-MAY-2019 10:49, (Unconfirmed) Significant changes have occurred Confirmed by Gerry GONZALEZ, Guy Block ([id number]) on 05/09/2019 10:18:30 AM
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
[2019-05-07] MEDS: VITAMIN D PO SCH (13:14)
[2019-05-07] MEDS: VITAMIN B-12 PO SCH (13:14)
[2019-05-07] MEDS: NEURONTIN PO SCH ×2 (13:14→21:10)
[2019-05-07] MEDS: FOLIC ACID PO SCH (13:14)
[2019-05-07] MEDS: THERA M PLUS PO SCH (13:15)
[2019-05-07] MEDS: PRILOSEC PO SCH (13:15)
[2019-05-07] MEDS: BETAPACE PO SCH ×2 (13:15→21:10)
[2019-05-07] MEDS: CALTRATE 600 PO SCH (13:15)
--- NOTE | 2019-05-07 15:52 | PROGRESS NOTE ---
DATE: 05/07/3029 SUBJECTIVE: Today Ms. Hooper refers to be doing well. Denies any more weakness or fatigue. She said she was able to even eat majority of her lunch today. OBJECTIVE: Vital signs: Blood pressure is 124/69, pulse 80, respirations 14, temperature 97.7 degrees. General: Ms. Hooper is a 58-year-old female. She is in bed in no distress. HEENT: Mucosa is pink and moist. Anicteric. Acyanotic. Neck: Supple. Chest: Good air entry bilaterally. No crepitations. No rhonchi. Cardiovascular: Irregularly irregular but seems to be rate controlled. Chest: Good air entry bilaterally. No crepitations. No rhonchi. Abdomen: Soft, nontender. Bowel sounds present. Extremities: No pedal edema. 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 LABORATORY DATA: CBC is unremarkable. Chemistry shows sodium is up to 132 from 0118 yesterday. The patient has been started back on her sotalol. ASSESSMENT: 1. Recurrent paroxysmal atrial fibrillation with rapid ventricular response on presentation. 2. Hyponatremia. 3. Tobacco use and abuse. 4. Status post gastric bypass surgery with diarrhea sequelae. 5. Obstructive sleep apnea patient uses CPAP. DISPOSITION: So in general, I think Ms. Hooper is currently stable. The Cardizem drip has been turned off. She has been started back on her sotalol and Eliquis. There is a plan to potentially do a LINCOLN with cardioversion tomorrow if she is not spontaneously converted. cc: Loco Tomas MD
[2019-05-07] MEDS: SINEQUAN PO SCH (21:10)
[2019-05-08 06:36] LABS: AGAP 16; BUN 11 mg/dL (8-22); CALCIUM 8.4 mg/dL (8.8-10.2); CHLORIDE 99 mmol/L (98-107); COSMO 271; CREATININE 0.7 mg/dL (0.5-0.9); ESTIMATED GFR > 60; GLUCOSE 95 mg/dL (70-104); MAGNESIUM 2.2 mg/dL (1.5-2.7); POTASSIUM 3.9 mmol/L (3.5-5.1); SODIUM 136 mmol/L (136-145); TCO2 21 mmol/L (25-35)
--- NOTE | 2019-05-08 08:02 | EKG Report ---
Test Performed on : 05/08/2019 07:08:53 AM Test Reason : afib/aflutter Blood Pressure : / mmHG Vent. Rate : 092 BPM Atrial Rate : 394 BPM P-R Int : 000 ms QRS Dur : 082 ms QT Int : 356 ms P-R-T Axes : 000 000 223 degrees QTc Int : 440 ms Atrial fibrillation. with a competing junctional pacemaker. with premature ventricular or aberrantly conducted complexes. Low voltage QRS Nonspecific T wave abnormality Abnormal ECG When compared with ECG of 07-MAY-2019 11:57, (Unconfirmed) Atrial fibrillation. has replaced Atrial flutter. Nonspecific T wave abnormality has replaced inverted T waves in Anterior leads Confirmed by Gerry GONZALEZ, Guy Block ([id number]) on 05/09/2019 10:19:35 AM
[2019-05-08] MEDS: NEURONTIN PO SCH ×2 (08:09→21:10)
[2019-05-08] MEDS: VITAMIN B-12 PO SCH (08:09)
[2019-05-08] MEDS: CALTRATE 600 PO SCH (08:09)
[2019-05-08] MEDS: THERA M PLUS PO SCH (08:09)
[2019-05-08] MEDS: VITAMIN D PO SCH (08:09)
[2019-05-08] MEDS: FOLIC ACID PO SCH (08:09)
[2019-05-08] MEDS: ELIQUIS PO SCH ×2 (08:09→20:33)
[2019-05-08] MEDS: PRILOSEC PO SCH (08:09)
[2019-05-08] MEDS: BETAPACE PO SCH ×2 (08:10→20:33)
[2019-05-08] MEDS: CARDIZEM 100 MG/NS 100 MG/100 ML IVPB IV SCH ×2 (16:33→21:08)
[2019-05-08] MEDS: TYLENOL ARTHRITIS PO PRN (16:41)
--- NOTE | 2019-05-08 20:10 | PROGRESS NOTE ---
DATE: 05/08/2019 SUBJECTIVE: Today Ms. Hooper referred to be doing fairly okay. Her heart rate has been bouncing back and forth, is in the 130s to 150s on the sotalol. She says she feels a little down-spirited today and weaker than yesterday. OBJECTIVE: Vital signs: Blood pressure is 117/84, pulse was about 130, respirations 21, temperature 97.1 degrees. General: Ms. Hooper is a 58-year-old female. She is in bed, no distress. Mucosa is pink and moist. Anicteric. Acyanotic. Neck: Supple. Chest: Clear to auscultation. Cardiovascular: Irregularly irregular. Tachycardic, no murmurs. GI: Abdomen is soft. Extremities: No pedal edema. 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 LABORATORY DATA: Chemistry shows sodium of 136, which is normalized. ASSESSMENT: 1. Recurrent paroxysmal atrial fibrillation with rapid ventricular response. The patient continues to be in RVR. The patient is on sotalol. However, heart rate continues to be extremely high. We are going to put her back on the Cardizem drip and await for Cardiology's further recommendations. 2. Hyponatremia, resolved. 3. Tobacco use and abuse. Patient has been counseled. 4. Status post gastric bypass surgery with diarrhea as sequelae. 5. Obstructive sleep apnea. Patient uses CPAP at home. Please refer to the details of the progress note written by the medical student. cc: Loco Tomas MD MTDD
[2019-05-08] MEDS: SINEQUAN PO SCH (20:33)
[2019-05-09] MEDS: NEURONTIN PO SCH ×3 (05:16→21:40)
[2019-05-09] MEDS: PRILOSEC PO SCH (05:16)
[2019-05-09 06:25] LABS: BASO# 0.02 X1000 (0.0-0.2); BASO% 0.3 % (0.0-0.8); EOS# 0.07 X1000 (0.0-0.7); EOS% 1.2 % (0.0-10.0); HEMOGLOBIN 15.1 g/dL (12.0-16.0); LYMPH% 30.1 % (20.5-51.1); MCH 30.8 PG (27-31); MCHC 32.8 g/dL (33-37); MCV 93.7 FL (81-99); MONO# 0.54 X1000 (0.11-0.59); MPV 10.7 FL (7.4-10.4); NEUT# 3.55 X1000 (1.4-6.5); NEUT% 59.4 % (42.2-75.2); PLT 114 X1000 (130-400); RBC 4.91 XMIL (4.2-5.4); RDW 15.8 % (11.5-14.5); WBC 5.98 X1000 (4.8-10.8)
[2019-05-09 06:47] LABS: AGAP 14; BUN 12 mg/dL (8-22); CALCIUM 8.5 mg/dL (8.8-10.2); CHLORIDE 101 mmol/L (98-107); COSMO 277; CREATININE 0.7 mg/dL (0.5-0.9); ESTIMATED GFR > 60; GLUCOSE 89 mg/dL (70-104); POTASSIUM 3.8 mmol/L (3.5-5.1); SODIUM 139 mmol/L (136-145); TCO2 24 mmol/L (25-35)
[2019-05-09] MEDS ORDERED: PRILOSEC PO SCH (07:00)
[2019-05-09] MEDS: BETAPACE PO SCH ×2 (08:09→20:24)
[2019-05-09] MEDS: CALTRATE 600 PO SCH (08:09)
[2019-05-09] MEDS: THERA M PLUS PO SCH (08:10)
[2019-05-09] MEDS: VITAMIN D PO SCH (08:10)
[2019-05-09] MEDS: ELIQUIS PO SCH ×2 (08:10→20:24)
[2019-05-09] MEDS: FOLIC ACID PO SCH (08:10)
[2019-05-09] MEDS: VITAMIN B-12 PO SCH (08:10)
--- NOTE | 2019-05-09 09:01 | EKG Report ---
Test Performed on : 05/09/2019 08:44:22 AM Test Reason : AFIB Blood Pressure : / mmHG Vent. Rate : 097 BPM Atrial Rate : 104 BPM P-R Int : 000 ms QRS Dur : 080 ms QT Int : 368 ms P-R-T Axes : 000 -02 247 degrees QTc Int : 467 ms Atrial fibrillation. Low voltage QRS Nonspecific ST and T wave abnormality Abnormal ECG When compared with ECG of 08-MAY-2019 07:08, (Unconfirmed) No significant change was found Confirmed by Gerry GONZALEZ, Guy Block ([id number]) on 05/11/2019 7:00:38 PM
[2019-05-09] MEDS ORDERED: DIPRIVAN 1% ONE (12:10)
[2019-05-09] MEDS ORDERED: NS 1,000 ML ONE (12:30)
--- NOTE | 2019-05-09 13:07 | PROGRESS NOTE ---
DATE: 05/09/2019 SUBJECTIVE: This morning, Ms. Hooper refers to be doing well. She said her heart rate has been better controlled since the Cardizem drip was started and she feels with more energy today. She is still in atrial fibrillation and she is pending a LINCOLN with cardioversion. OBJECTIVE: Vital signs: Blood pressure is 114/78, pulse of 116, respirations 15, temperature 96.6 degrees. General: Ms. Hooper is a 58-year-old female. She is in bed, no distress. HEENT: Mucosa is pink and moist. Anicteric. Acyanotic. Neck: Supple. Chest: Good air entry bilaterally. No crepitations. No rhonchi. Cardiovascular: Irregularly irregular. Tachycardic. No murmurs. Gastrointestinal: Abdomen soft, nontender. Bowel sounds present. There is no hepatosplenomegaly. Extremities: No pedal edema. Distal pulses present. Central Nervous System: Patient is awake, alert, oriented. There is no focal deficit. LABORATORY DATA: Has been reviewed. CBC is completely normal. Chemistry is also normal. PATIENT MEDICATIONS: Have also been reviewed. ASSESSMENT: 1. Recurrent paroxysmal atrial fibrillation with rapid ventricular response. Patient is currently on sotalol and Cardizem drip. Heart rate fluctuates and she is pending a LINCOLN with cardioversion today. 2. Hyponatremia resolved. 3. Tobacco use and abuse. Patient has been counseled. 4. Status post gastric bypass with diarrhea as a sequela. Patient is on Imodium p.r.n. 5. Obstructive sleep apnea. Patient uses CPAP. 6. Anticoagulation with Eliquis for stroke prophylaxis noted. 7. Disposition will depend on the rest of the hospital course especially after the LINCOLN with cardioversion. cc: Loco Tomas MD
--- NOTE | 2019-05-09 13:41 | EKG Report ---
Test Performed on : 05/09/2019 1:30:24 PM Test Reason : post CVN Blood Pressure : / mmHG Vent. Rate : 060 BPM Atrial Rate : 060 BPM P-R Int : 160 ms QRS Dur : 078 ms QT Int : 428 ms P-R-T Axes : 049 -03 -18 degrees QTc Int : 428 ms Normal sinus rhythm. Low voltage QRS Cannot rule out Anterior infarct , age undetermined Abnormal ECG When compared with ECG of 09-MAY-2019 08:44, (Unconfirmed) Sinus rhythm. has replaced Atrial fibrillation. Vent. rate has decreased BY 37 BPM Nonspecific T wave abnormality, improved in Lateral leads Confirmed by Gerry GONZALEZ, Guy Block ([id number]) on 05/11/2019 7:01:02 PM
[2019-05-09] MEDS: SINEQUAN PO SCH (20:24)
[2019-05-10] MEDS: TYLENOL ARTHRITIS PO PRN (03:37)
[2019-05-10] MEDS: PRILOSEC PO SCH (05:25)
[2019-05-10] MEDS: NEURONTIN PO SCH (05:25)
[2019-05-10 08:01] VITALS: BP 128/76
[2019-05-10] MEDS: VITAMIN B-12 PO SCH (09:08)
[2019-05-10] MEDS: VITAMIN D PO SCH (09:08)
[2019-05-10] MEDS: THERA M PLUS PO SCH (09:09)
[2019-05-10] MEDS: BETAPACE PO SCH (09:09)
[2019-05-10] MEDS: FOLIC ACID PO SCH (09:09)
[2019-05-10] MEDS: ELIQUIS PO SCH (09:09)
[2019-05-10] MEDS: CALTRATE 600 PO SCH (09:09)
--- NOTE | 2019-05-10 09:11 | CARDIAC CATH REPORT ---
PROCEDURE NAME: - PROCEDURE: Cardioversion of atrial fibrillation. SUMMARY: After intravenous sedation with propofol per Anesthesiology, synchronous direct current cardioversion with 200 joules biphasic was performed, converting atrial fibrillation to sinus rhythm. There were no apparent complications. CONCLUSIONS: Successful cardioversion of atrial fibrillation to restore sinus rhythm. cc: Hakan Alfaro MD
--- NOTE | 2019-05-11 15:35 | DISCHARGE SUMMARY ---
ADMISSION DATE: 05/06/2019 DISCHARGE DATE: 05/10/2019 DISPOSITION: Home. FOLLOW-UP INSTRUCTIONS: 1. Dr. Leonard. 2. Dr. Alfaro. CONSULTATION DURING THIS ADMISSION: Cardiology was consulted. Patient was seen by Dr. Landers. INVASIVE PROCEDURES DONE DURING THIS ADMISSION: A LINCOLN with electrical cardioversion was done by Dr. Alfaro where a direct current cardioversion with 200 joules biphasic was performed and patient was converted to normal sinus rhythm. IMAGING STUDIES OF SIGNIFICANCE: A chest x-ray showed improved pleural effusion. ADMISSION DIAGNOSES: 1. Atrial fibrillation with rapid ventricular response. 2. Hyponatremia. 3. Hyperkalemia. 4. Tobacco abuse. DIAGNOSES AT THE TIME OF DISCHARGE: 1. Recurrent paroxysmal atrial fibrillation with rapid ventricular response. This is the 2nd time patient has gone under LINCOLN with electrical cardioversion. She is currently in sinus. 2. Hyponatremia resolved. 3. Tobacco use and abuse. Patient has been counseled. 4. Status post gastric bypass with intermittent diarrhea. Patient is on p.r.n. Imodium. 5. Obstructive sleep apnea. 6. Tobacco use and abuse. 7. Anticoagulation with Eliquis for stroke prophylaxis. DISCHARGE MEDICATIONS: 1. Cholecalciferol 202,005 100 units p.o. daily. 2. Omeprazole 40 mg p.o. daily. 3. Cinquain 10 mg p.o. at bedtime. 4. Alendronate 70 mg p.o.. as directed. 5. Gabapentin 300 mg 3 times per day. 6. Loperamide 4 mg p.o. daily p.r.n. 7. Folic acid 1 mg p.o. daily. 8. Eliquis 5 mg b.i.d. 9. Sotalol 120 p.o. b.i.d. PRESENTING COMPLAINT: Dry heaving, palpitations. HISTORY OF PRESENTING COMPLAINT: Ms. Hooper is a 58-year-old female who is known to have atrial fibrillation, recently underwent cardioversion and was sent home. She was on sotalol. Referred to have been doing well. Unfortunately, presented because of shortness of breath, some heaviness and palpitation. She was found to be in atrial fibrillation with RVR with mildly abnormal electrolytes, was subsequently admitted for medical care. HOSPITAL COURSE: Ms. Hooper was started on Cardizem drip and started back on her home medications. Cardiology was consulted. He was she was seen by Dr. Landers who initially thought that by correcting her electrolytes, she should be okay. Unfortunately, she continued to be in atrial fibrillation RVR and was started back on Cardizem drip and a decision was made by Cardiology to electrically cardiovert. This was successfully done yesterday and Ms. Hooper was observed overnight. She continued to remain in sinus rhythm. We think she is now clinically stable to be discharged and to follow up with her complementary health therapists. She has an appointment with Dr. Alfaro on May 14. Ms. Hooper is therefore being discharged in stable condition. At the time of the discharge, her vitals, blood pressure was 128/76, pulse of 63, respirations 19. Temperature is 98.3 degrees. The patient is saturating 100% on room air. DISCHARGE INSTRUCTIONS: All the discharge instructions have been discussed with her and she voiced understanding. TIME SPENT FOR DISCHARGE: 38 minutes. cc: MD Jasmin Rice MD Raphael K. Quansah, MD
[2019-05-13] MEDS ORDERED: FOSAMAX PO SCH (07:00)
== END 2019-05-10 11:45 | disposition home or self-care (01) | DRG 309 ==
LOC: P.ED 10:26 → SUATTDRO 10:27 → P.EDIPHOLD 12:14 → 2N 19:24
PROVIDERS: ATTEND Internal Medicine